=== PATIENT | female | born 1960 | race Caucasian/White ===

== ENCOUNTER 2018-10-23 17:35 | Emergency (ER) | payer BC ==
[2018-10-23] MEDS ORDERED: ASPIRIN 81 MG TABLET, CHEWABLE PO ONE (18:35)
--- NOTE | 2018-10-23 18:37 | ER Document Report ---
ED Medical Screen (RME) - General Chief Complaint: Chest Pain Stated Complaint: CHEST PAIN Time Seen by Provider: 10/23/18 18:35 Mode of Arrival: Ambulatory Information source: Patient Notes: Patient presents complaining of left-sided chest pain for the past several weeks. Patient states she feels as though she has a pressure on her chest. Patient states today it started to radiate to the left back area which got her concerned. Patient does complain of some nausea. No cough no shortness of breath. I have greeted and performed a rapid initial assessment of this patient. A comprehensive ED assessment and evaluation of the patient, analysis of test results and completion of the medical decision making process will be conducted by additional ED providers. TRAVEL OUTSIDE OF THE [place] IN LAST 30 DAYS: No Physical Exam - Vital signs Vitals: Temp Pulse Resp BP Pulse Ox 97.9 F 72 16 131/73 H 96 10/23/18 18:03 10/23/18 18:03 10/23/18 18:03 10/23/18 18:03 10/23/18 18:03 - Respiratory Respiratory status: No respiratory distress Chest status: Pain with deep breathing Chest palpation: Normal - Cardiovascular Rhythm: Regular Heart sounds: S1 appreciated, S2 appreciated Course - Vital Signs Vital signs: Temp Pulse Resp BP Pulse Ox 97.9 F 72 16 131/73 H 96 10/23/18 18:03 10/23/18 18:03 10/23/18 18:03 10/23/18 18:03 10/23/18 18:03
--- NOTE | 2018-10-23 19:04 | RADIOLOGY REPORT (SQ) ---
EXAM DESCRIPTION: CHEST 2 VIEWS COMPLETED DATE/TIME: 10/23/2018 6:52 pm REASON FOR STUDY: cp COMPARISON: None. EXAM PARAMETERS: NUMBER OF VIEWS: two views TECHNIQUE: Digital Frontal and Lateral radiographic views of the chest acquired. RADIATION DOSE: NA LIMITATIONS: none FINDINGS: LUNGS AND PLEURA: No opacities, masses or pneumothorax. No pleural effusion. MEDIASTINUM AND HILAR STRUCTURES: No masses or contour abnormalities. HEART AND VASCULAR STRUCTURES: Heart normal size. No evidence for failure. BONES: No acute findings. HARDWARE: None in the chest. OTHER: No other significant finding. IMPRESSION: NO ACUTE RADIOGRAPHIC FINDING IN THE CHEST. TECHNICAL DOCUMENTATION: JOB ID: [id number] [employer]- All Rights Reserved Reading location - IP/workstation name: [email or web address]
[2018-10-23 19:38] LABS: ABSOLUTE BASOPHILS # (AUTO) 0.1 10^3/uL (0.0-0.2); ABSOLUTE EOSINOPHILS # (AUTO) 0.1 10^3/uL (0.0-0.6); ABSOLUTE LYMPHOCYTES (AUTO) 2.6 10^3/uL (0.5-4.7); ABSOLUTE MONOCYTES (AUTO) 0.6 10^3/uL (0.1-1.4); ABSOLUTE NEUT (AUTO) 3.5 10^3/uL (1.7-8.2); BASOPHILS % (AUTO) 0.8 % (0-2); EOSINOPHILS % (AUTO) 0.9 % (0-6); HEMATOCRIT 42.2 % (36.0-47.0); HEMOGLOBIN 14.3 g/dL (12.0-15.5); LYMPHOCYTES % (AUTO) 38.2 % (13-45); MEAN CORPUSCULAR HEMOGLOBIN 31.7 pg (27.0-33.4); MEAN CORPUSCULAR VOLUME 93 fl (80-97); MONOCYTES % (AUTO) 8.7 % (3-13); PLATELET COUNT 227 10^3/uL (150-450); RED BLOOD COUNT 4.52 10^6/uL (3.72-5.28); RED CELL DISTRIBUTION WIDTH 12.1 % (11.5-14.0); SEGMENTED NEUTROPHILS % (AUTO) 51.4 % (42-78); TOTAL CELLS COUNTED % (AUTO) 100 %; WHITE BLOOD COUNT 6.8 10^3/uL (4.0-10.5)
[2018-10-23 19:53] LABS: ALANINE AMINOTRANSFERASE 41 U/L (9-52); ALBUMIN 4.9 g/dL (3.5-5.0); ALKALINE PHOSPHATASE 51 U/L (38-126); ANION GAP 11 (5-19); ASPARTATE AMINO TRANSFERASE 37 U/L (14-36); BILIRUBIN,DIRECT 0.2 mg/dL (0.0-0.4); BILIRUBIN,TOTAL 0.4 mg/dL (0.2-1.3); BLOOD UREA NITROGEN 19 mg/dL (7-20); CALCIUM 10.5 mg/dL (8.4-10.2); CARBON DIOXIDE 30 mmol/L (22-30); CHLORIDE 99 mmol/L (98-107); GLUCOSE 88 mg/dL (75-110); LIPASE 148.6 U/L (23-300); POTASSIUM 4.4 mmol/L (3.6-5.0); SODIUM 139.6 mmol/L (137-145); TOTAL PROTEIN 7.5 g/dL (6.3-8.2)
--- NOTE | 2018-10-23 22:03 | EKG REPORT ---
SEVERITY:- ABNORMAL ECG - SINUS RHYTHM RIGHT BUNDLE BRANCH BLOCK : Confirmed by: Codi Knutson 23-Oct-2018 22:02:32
--- NOTE | 2018-10-23 22:03 | ER Document Report ---
ED General - General Chief Complaint: Chest Pain Stated Complaint: CHEST PAIN Time Seen by Provider: 10/23/18 18:35 Primary Care Provider: TOMASA HIDALGO MD [ACTIVE STAFF] - Follow up tomorrow (call office in the am to make a close follow up appointment) Mode of Arrival: Ambulatory Notes: Patient is a pleasant 20-year-old female presents with complaint of chest pain has been ongoing for a week. She says starts as a pressure in epigastric region and radiates into her chest and sometimes into her back. She says sometimes it is made worse with eating. She says it feels as if she has a hiatal hernia but she is never actually had one before so she is not sure. She says the symptoms are usually improved initially with Tums. She did see her doctor up in [place] last week. She says she lives part of the year here and also part of the year in [place]. She says that her doctor referred her to the machinist apprentice for stress test however she moved down here for the remainder of the year and therefore has been unable to get into the machinist apprentice as of yet TRAVEL OUTSIDE OF THE [place] IN LAST 30 DAYS: No - Related Data Allergies/Adverse Reactions: No Known Allergies Allergy (Verified 10/23/18 19:22) Past Medical History - General Information source: Patient - Social History Smoking Status: Never Smoker Frequency of alcohol use: Occasional Drug Abuse: None Family History: Reviewed & Not Pertinent Patient has suicidal ideation: No Patient has homicidal ideation: No Renal/ Medical History: Denies: Hx Peritoneal Dialysis Past Surgical History: Reports: Hx Hysterectomy Review of Systems - Review of Systems Notes: My Normal Review Basic REVIEW OF SYSTEMS: CONSTITUTIONAL : Denies fever, chills, or sweats. Denies recent illness. EENT: Denies eye, ear, throat, or mouth pain or symptoms. Denies nasal or sinus congestion. CARDIOVASCULAR: chest pain RESPIRATORY: Denies cough, cold, or chest congestion. Denies shortness of breath, difficulty breathing, or wheezing. GASTROINTESTINAL: epigastric abdominal pain. Denies nausea, vomiting, or diar aguilar. GENITOURINARY: Denies difficulty urinating, painful urination, burning, frequency, or blood in urine. MUSCULOSKELETAL: Denies neck or back pain or joint pain or swelling. SKIN: Denies rash or skin lesions. NEUROLOGICAL: Denies altered mental status or loss of consciousness. Denies headache. Denies weakness or paralysis or loss of use of either side. Denies problems with gait or speech. Denies sensory or motor loss. ALL OTHER SYSTEMS REVIEWED AND NEGATIVE. Physical Exam - Vital signs Vitals: Temp Pulse Resp BP Pulse Ox 97.9 F 72 16 131/73 H 96 10/23/18 18:03 10/23/18 18:03 10/23/18 18:03 10/23/18 18:03 10/23/18 18:03 - Notes Notes: General Appearance: Well nourished, alert, cooperative, no acute distress, no obvious discomfort. well appearing Vitals: reviewed, See vital signs table. Head: no swelling or tenderness to the head Eyes: PERRL, EOMI, Conjuctiva clear Mouth: No decreasd moisture Lungs: No wheezing, No rales, No rhonci, No accessory muscle use, good air exchange bilaterally. Heart: Normal rate, Regular rythm, No murmur, no rub Abdomen: Normal BS, soft, No rigidity, No abdominal tenderness, No guarding, no rebound, no abdominal masses, no organomegaly Extremities: strength 5/5 in all extremities, good pulses in all extremities, no swelling or tenderness in the extremities, no edema. Skin: warm, dry, appropriate color, no rash Neuro: speech clear, oriented x 3, normal affect, responds appropriately to questions. Course - Re-evaluation Re-evalutation: 10/24/18 06:32 I suspect the patient's pain and pressure is most likely of a GI etiology. I did review her heart score with her. Heart score is less than 3 and therefore risk of a cardiac event is approximate 1.5% of the course of next 6 weeks. I did give her GI cocktail which relieved most of her symptoms. Patient says that she is agreeable with the plan of outpatient follow-up. I will refer her to Dr. Hidalgo. I encouraged her to call his office this morning to make a close follow-up appointment for reevaluation and for outpatient stress testing. I informed her to have a low threshold to return to ER if she has worsening pain, difficulty breathing, fevers, or feels unwell. I will have her start taking Pepcid and have prescribed her Carafate. I again informed her that I suspect that this likely GI cause however based on her age and the chest pain it is appropriate for her to still follow-up with machinist apprentice for reevaluation to discuss whether not outpatient stress test is appropriate. Patient agrees with plan and will be discharged home. Dictation of this chart was performed using voice recognition software; therefore, there may be some unintended grammatical errors. - Vital Signs Vital signs: Temp Pulse Resp BP Pulse Ox 97.4 F 72 17 115/57 L 96 10/24/18 00:35 10/23/18 18:03 10/24/18 00:01 10/24/18 00:00 10/24/18 00:01 - Laboratory Result Diagrams: 10/23/18 19:09 10/23/18 19:09 Laboratory results interpreted by me: 10/23/18 19:09 Calcium 10.5 H AST 37 H - EKG Interpretation by Me Additional EKG results interpreted by me: 10/23/18 22:03 EKG is reviewed and interpreted by me. EKG shows sinus rhythm with a rate of [address] segment elevation or depression. No ischemic T wave inversions. IL interval slightly prolonged. QRS duration is prolonged. QTc interval is within normal range. Patient does have a right bundle branch block. No old EKG for comparison. Discharge - Discharge Clinical Impression: Chest pain Qualifiers: Chest pain type: unspecified Qualified Code(s): R07.9 - Chest pain, unspecified Condition: Good Disposition: HOME, SELF-CARE Additional Instructions: As discussed with you your heart score is less than 3 which means that you are appropriate for discharge and follow-up with machinist apprentice for evaluation. As discussed with you I think possibly your pain could be related to esophagitis and gastritis. Treatment for this is to take Pepcid 20 mg twice a day. You can buy Pepcid [id number]. I will also prescribe a medication called sucralfate which will help to neutralize acid in your stomach and esophagus. Please stop taking Excedrin. Tylenol safe to take. I still think it is appropriate for you to get a cardiac stress test or at least be evaluated by the machinist apprentice to determine if this is necessary. Please follow-up with Dr. Nehemiah caldwell, machinist apprentice partition setter. Please call his office in the morning to make follow-up appointment. Please have a low threshold to return to ER if you have worsening chest pain, fevers, difficulty breathing, black or tarry stools, blood in your stool, vomiting, or if you feel like you are worsening in any way. Prescriptions: RX: Sucralfate [Carafate 1 gm Tablet] 1 gm PO ACHS #120 tablet Referrals: TOMASA HIDALGO MD [ACTIVE STAFF] - Follow up tomorrow (call office in the am to make a close follow up appointment)
[2018-10-23] MEDS ORDERED: MAG HYDROX/AL HYDROX/SIMETH SUSP 30 ML UDCUP PO ONE (22:26)
[2018-10-23] MEDS ORDERED: METOCLOPRAMIDE HCL ORAL SOLN 10 MG/10 ML UDCUP PO ONE (22:26)
[2018-10-23] MEDS ORDERED: LIDOCAINE 2% VISCOUS SOLN 20 ML UDCUP PO ONE (22:26)
[2018-10-24] MEDS ORDERED: FAMOTIDINE 20 MG TABLET PO ONE (00:11)
[2018-10-24 00:30] VITALS: BP 115/57
== END 2018-10-24 00:35 | disposition home or self-care (01) ==
LOC: ER 17:35
DX: R07.9 Chest pain, unspecified (principal); Z90.710 Acquired absence of both cervix and uterus
CPT/HCPCS: 93005; 99285; 36415; 83690; 85025; 80053; 84484; 71046; 93010; J3490